=== PATIENT | female | born 1985 | race Caucasian/White ===

== ENCOUNTER → 2016-11-30 | Outpatient (REF) | payer BC, OTHER ==
[~2016-11-30] MED LIST: ATN50T PO; AZIT250T81 PO; FLUO20CA42; HYDR1TABED PO; KETO10TA55 PO; LEVO750T39 PO; LSNP10T PO; METF500T4 PO; PHEN-452; SERT100T8 PO
== END ==
LOC: LAB 10:03 → EDSTATUS 10:09 → LAB 10:10
PROVIDERS: ATTEND Nurse Practitioner Family
DX: E11.9 Type 2 diabetes mellitus without complications (principal); J03.80 Acute tonsillitis due to other specified organisms
CPT/HCPCS: 83036; 87070

== ENCOUNTER 2017-01-18 19:25 | Observation (INO) | payer BC, OTHER ==
[~2017-01-18] VITALS: Ht 188 cm; Wt 173.8 kg
[2017-01-18] MEDS ORDERED: NS IV 500 ML 500 ML IV SCH (20:00)
[2017-01-18 20:28] LABS: BASOPHILS % (AUTO) 0 % (0-2); EOSINOPHILS # (AUTO) 0.1 10^3uL; EOSINOPHILS % (AUTO) 1 % (0-4); LYMPHOCYTES # (AUTO) 1.9 X10^3; MEAN CORPUSCULAR HEMOGLOBIN 30.4 PG (26.0-34.0); MEAN CORPUSCULAR VOLUME 82 FL (80-100); MEAN PLATELET VOLUME 9.5 FL (6.0-9.5); MONOCYTES # (AUTO) 0.5 X10^3; MONOCYTES % (AUTO) 5 % (3-11); NEUTROPHILS # (AUTO) 8.9 X10^3; NEUTROPHILS % (AUTO) 78 % (51-67); PLATELET COUNT 292 10^3uL (150-450); WHITE BLOOD COUNT 11.41 10^3uL (4.0-11.0)
[2017-01-18 20:33] LABS: BILIRUBIN,URINE Negative (Negative); COLOR,URINE Yellow; GLUCOSE, URINE (UA) Negative (Negative); LEUKOCYTE ESTERASE ,URINE Negative (Negative); PH,URINE 5.5 (5.0 - 8.0); UROBILINOGEN,URINE 0.2 mg/dL (0.2-1.0)
[2017-01-18 20:37] LABS: CREATINE KINASE 45 U/L (30-135)
[2017-01-18 20:40] LABS: ALBUMIN 4.8 g/dL (3.4-5.0); ANION GAP 17.3 MEQ/L (3-15); CALCULATED IONIZED CALCIUM 4.3 mg/dL (3.8-4.6); TOTAL PROTEIN 7.9 g/dL (6.4-8.5)
[2017-01-18 20:50] LABS: CLARITY,URINE Slightly Cloudy
[2017-01-18 20:51] LABS: MEAN CORPUSCULAR HGB CONC 37.3 g/dL (31.0-37.0)
[2017-01-18 21:11] LABS: RBC,URINE 0-2 /HPF; URINE CENTRIFUGED VOLUME 12 mL
[2017-01-18] MEDS ORDERED: HYDROCHLOROTHIAZIDE 25 MG (HCTZ) TAB PO ONE (21:20)
[2017-01-18] MEDS ORDERED: LEVOFLOXACIN 250 MG TAB (LEVAQUIN) PO SCH (21:20)
[2017-01-18] MEDS ORDERED: ED- ALBUTEROL HFA (VENTOLIN HFA) 8 GM INHALER IH ONE (21:20)
[2017-01-18] MEDS ORDERED: predniSONE 20 MG (DELTASONE) TABLET PO ONE (21:20)
[2017-01-18] MEDS ORDERED: LABETALOL HCL 20 MG/4 ML VIAL IV ONE (21:55)
[2017-01-19] VITALS (11 sets, daily range): BP systolic 138–167; BP diastolic 79–103
--- NOTE | 2017-01-19 00:10 | NUR ---
Pt admitted to 343 from ER for Hypertensive Urgency. Pt was sent to ER from Urgent Care for chest pain with right neck and jaw pain and chest pressure/tightness. Pt has had a cough since Wednesday. Pt reports coughing makes her chest and jaw hurt worse. Pt's BP upon admittance to ICU was 167/103. Pt is alert and oriented, cooperative with staff. 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
[2017-01-19] MEDS ORDERED: CALCIUM CARBONATE CHEWABLE 300 MG (TUMS) TABLET PO PRN (00:50)
[2017-01-19] MEDS ORDERED: MAG HYDROX/AL HYDROX/SIMETH 200-200-20/5 ML (MAG-AL PLUS) 30 ML UDC PO PRN (00:50)
[2017-01-19] MEDS ORDERED: ONDANSETRON 4 MG (ZOFRAN) ORAL DISSOLVE TAB PO PRN (00:50)
[2017-01-19] MEDS ORDERED: ALBUTEROL 0.083% NEB SOLUTION 2.5 MG/3 ML VIAL INH PRN (00:50)
[2017-01-19] MEDS ORDERED: amLODIPine 5 MG (NORVASC) TAB PO ONE (00:50)
--- NOTE | 2017-01-19 00:50 | NUR ---
Pt assessed by Dr. Hyatt (telehospitalist). Received new orders.
[2017-01-19] MEDS ORDERED: LABETALOL HCL 20 MG/4 ML VIAL IV PRN (01:00)
--- NOTE | 2017-01-19 01:10 | NUR ---
Administered Norvasc. Pt took without difficulty. Explained med to pt. Pt's spouse staying in room tonight. Reviewed care of plan with patient and spouse Pt stated her understanding and no other questions at this time. Call light in reach.
[2017-01-19] MEDS ORDERED: lisINopril 20 MG (PRINIVIL) TABLET PO ONE (01:20)
[2017-01-19] MEDS: ACETAMINOPHEN 325 MG TAB (TYLENOL) PO PRN ×2 (02:59→09:52)
--- NOTE | 2017-01-19 06:00 | NUR ---
Pt has had very little sleep tonight. Has slept well for nearly 2.5 hours, snores and has brief periods of sleep apnea. No needs for prn Labetalol since SBPs have been 140's - 150's. No other reports of discomfort. No other needs at this time. Call light in reach.
[2017-01-19] MEDS ORDERED: ASPIRIN 325 MG TAB PO SCH (09:00)
[2017-01-19] MEDS ORDERED: meTOproloL SUCCINATE 50 MG (TOPROL XL) TAB PO SCH (09:00)
[2017-01-19] MEDS ORDERED: SERTRALINE 100 MG (ZOLOFT) TABLET PO SCH (09:00)
[2017-01-19] MEDS ORDERED: FLUoxetine 20 MG (PROzac) CAPSULE PO SCH (09:00)
--- NOTE | 2017-01-19 09:09 | NUR ---
NUTRITION ASSESSMENT Level 1 Patient: Estelle Newell Age/Sex: 31/F Date Screened: 01-19-17 Weight: 382.3#/173.8 kg Height: 74 inches Primary Diagnosis: hypertensive urgency Diet Order: medium diabetic Relevant labs: N/A Food allergies: N Nutrition Assessment Criteria Age over 80: N Body Mass Index (BMI) under 19: N Admission Screening Indicates Risk? N Moderate/High Risk Diagnosis: 3 points TPN or PPN: N NPO or clear liquid diet: N Serum Glucose <70 or >180: N/A Hgb A1c >6.7: N/A Total: 3 points Risk Screen: __ Patient at low nutritional risk based on available data; reevaluate in 5-7 days _X_ Patient at moderate nutritional risk based on available data; reevaluate in 3-5 days __ Patient at high nutritional risk; complete Nutrition Assessment within 48 hours of admission. Comments: No GI concerns, stated good appetite on admission. Noted possible DC today if doing well after lunch. Will reassess as documented above.
[2017-01-19] MEDS ORDERED: metFORMIN 500 MG (GLUCOPHAGE) TABLET PO SCH (09:15)
[2017-01-19] MEDS ORDERED: ATENOLOL 50 MG (TENORMIN) TAB PO SCH (09:15)
[2017-01-19] MEDS ORDERED: lisINopril 10 MG (PRINIVIL) TABLET PO SCH (13:35)
--- NOTE | 2017-01-19 13:50 | NUR ---
Reviewed discharge medications with patient. Provided patient handout information for new medications. No additional questions or concerns. Patient verbalized understanding of medications.
--- NOTE | 2017-01-19 14:46 | NUR ---
Patient is up independently this AM to the restroom. On assessment the patient is alert and oriented. Respirations are even and unlabored, skin is clean and dry. She presents with flat affect and quiet tone. VSS, BG at 138. and Estelle requests to sleep at this time. At approximately 0900 PHYLLIS Santiago, Dr. Gan and Dr. Bush are in to round on the patient. Discharge orders in process for this afternoon pending improvement. The patient is up and independent for hygiene after resting. She is up in bed for lunch and is able to make needs known. Prior to dismissal the patients BP is elevated with SBP between 160s and 180s and DBP between 90's and 110's on multiple assessments. 10 mg Lisinopril PO ordered and administered. At approximately 1430 BP is WNL. IV removed and discharge instructions are read. The patient is to follow up with PCP on Wednesday the . Patient remains in room 343 at this time awaiting her ride home.
--- NOTE | 2017-01-19 15:03 | NUR ---
Patient is escorted out of the building at this time. Care is relinquished.
[2017-01-19] MEDS ORDERED: LEVOFLOXACIN 750 MG TAB (LEVAQUIN) PO SCH (21:00)
== END 2017-01-19 15:03 | disposition home or self-care (01) ==
LOC: ED 19:26 → UNDOADMIN 23:29 → ICU 23:29 → INTOOBSV 23:35 → ICU 23:35
PROVIDERS: ADMIT Pediatrics; ATTEND Pediatrics
DX: I16.0 Hypertensive urgency (principal); J18.9 Pneumonia, unspecified organism; E11.9 Type 2 diabetes mellitus without complications; F41.9 Anxiety disorder, unspecified; J40 Bronchitis, not specified as acute or chronic; Z79.84 Long term (current) use of oral hypoglycemic drugs
CPT/HCPCS: 36415; 71020; 80053; 81003; 81015; 82550; 82553; 83880; 84484; 85025; 86140; 93005; 94664; 96374; 99218; 99283; J3490; J7040; 93010; 99284

== ENCOUNTER → 2017-01-18 | Outpatient (CLI) | payer BC, OTHER ==
[2017-01-18 19:29] VITALS: BP 134/83
== END ==
LOC: MHUC 18:33
PROVIDERS: ATTEND Physician Assistant Medical
DX: R06.02 Shortness of breath (principal)
CPT/HCPCS: 99213

== ENCOUNTER → 2017-02-12 | Outpatient (CLI) | payer BC, OTHER ==
--- NOTE | 2017-02-12 08:04 | Diagnostic Imaging Report ---
INDICATION: Pneumonia. PA and lateral views of the chest are obtained. Comparison is made to the examination of 01/18/2017. FINDINGS: Heart size and pulmonary vascularity are within normal limits, and the lungs are clear, bilaterally. IMPRESSION: Unremarkable chest. Dictated by: Dictated on workstation # [id number]
== END ==
LOC: RAD 07:38
PROVIDERS: ATTEND Nurse Practitioner Family
DX: R93.8 Abnormal findings on diagnostic imaging of other specified body structures (principal)
CPT/HCPCS: 71020

== ENCOUNTER → 2017-03-01 | Outpatient (REF) | payer BC, OTHER | LOC: LAB 08:04 → EDSTATUS 08:06 | PROVIDERS: ATTEND Nurse Practitioner Family | DX: E11.9 Type 2 diabetes mellitus without complications (principal) | CPT/HCPCS: 83036 ==

== ENCOUNTER 2017-04-01 07:30 | Outpatient (RCR) | payer BC, OTHER ==
--- NOTE | 2017-03-25 13:57 | PT/OT/ST INITIAL EVALUATION ---
Department of Health and Human Services Form Approved Health Care Financing Administration OMB No. [id number] PLAN OF CARE/ASSESSMENT FOR OUTPATIENT REHABILITATION (Complete for Initial Claims Only) 1. PATIENT'S NAME Estelle Newell 2. ACC # [id number] 3. HICN NA 4. PROVIDER NO. [id number] 5. TYPE: PT 6. PRIOR HOSPITALIZATION NA 7. PRIMARY DX G57.02 piriformis syndrome of the left side. 8. SECONDARY DX NA 9. ONSET DATE 1 year ago 10. REFERRAL DATE 03/17/2017 11. SOC. DATE 03/22/2017 12. TIME OF EVAL 7:29 to 8:33 12. REFERRING PHYSICIAN Edward Bush MD 13. CHARGES/UNITS PT evaluation 66209 moderate complexity. Manual therapy 34584 1 unit Therapeutic exercise 29272 1 unit 14. G CODES NA 15. PRIOR LEVEL OF FUNCTION; PERTINENT HISTORY (Prior therapy results, reason for referral.) S: Prior to therapy the patient consented to today's evaluation and treatment. The patient is a 31-year-old female referred by Dr. Edward Bush to address left-sided piriformis syndrome. The patient notes she began experiencing pain in the left hip approximately 1 year ago and the pain has progressed into her left lower extremity down around the foot since February 2017. The patient denies any specific injury that caused this issue. Primary Complaint: Pain down her left lower extremity with tenderness to palpation of the Achilles tendon, as well as cramping into her toes at times. Prior level of function: The patient was working out regularly prior to the onset of these symptoms. She was doing cardio for 1 hour a day and then would do 30 minutes of weight training, alternating between legs and arms. Current level of function: The patient reports difficulty being able to stand up from sitting. Sitting at work is difficult, as well as experiencing increased pain after working out. 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 Leisure activities: Includes working out and playing with her 4-year-old daughter. Therapy History: The patient has not had any therapy for this specific issue, but did see the chiropractor to be readjusted, but felt it was minimally beneficial. Pain level: Current pain level is 1 to 2/10. Maximum pain level is 7/10. The patient describes her pain as constant on the left side of her low back around the SI joint with radiating symptoms down along the left anterior hip at times and then along the lateral left lower extremity into her foot. Aggravating factors: The pain is aggravated by sitting or working out. Relieving factors: It is relieved by taking Tylenol. Diagnostic testing: No diagnostic imaging has been completed at this time. 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 She does report she is now beginning to experiencing similar popping in her left knee. She also has diabetes mellitus and hypertension. There was suspicion of a possible DVT due to the patient's symptoms and they have ruled that out per her report. Current medications: Include metformin, atenolol and Lisinopril, as well as Tylenol and naproxen as needed for pain. Activity level: The patient notes is semi-active. Personal health rating: Fair. Patient's Goal: The goal is to be pain free and be able to return to being active. 16. INITIAL ASSESSMENT/SAFETY PRECAUTIONS/MEDICAL COMPLICATIONS (Level of function at start of care. Be specific, use objective measures, list problems.) O: APPEARANCE, OBSERVATION AND GAIT: Observation of the patient's posture reveals an overweight, tall female. She has bilateral foot supination and left foot and ankle instability. With right lumbar side bending, she has a resolution of symptoms down her left lower extremity. With lumbar flexion the patient has pain at 50% of the range and demonstrates a left-sided deviation. PALPATION: Tenderness to palpation of the left SI joint, tightness palpable along the bilateral lumbar paraspinals into the left IT band and piriformis. SPECIAL TESTS: Positive quadrant test bilaterally with the greatest amount of pain on the left. Positive straight leg raise test for increased nerve test, negative on the right. Assessment of the patient's leg length reveals the left lower extremity is longer than the right. Positive ABDIAZIZ test on the left. Negative FADER and hip scour test bilaterally. The patient has decreased symptoms with SI joint distraction. Negative lumbar shear test for any instability in the lumbar spine, however, palpation of specific lumbar segments was difficult due to patient's size. RANGE OF MOTION/FLEXIBILITY: Hamstring length on the right was 170 degrees, left 140 degrees and painful. STRENGTH: Hip flexion right 5/5, left 4+/5 and painful. Right hip abduction was not assessed secondary to discomfort lying on left side, but left hip abduction 4/5. Knee flexion and extension 5/5 on the right, 4/5 on the left. Ankle dorsiflexion 5/5 bilaterally. TODAY'S TREATMENT: Today's treatment consisted of initiating with manual therapy techniques including right side lying lumbar rotation mobilization as well as myofascial release with the use of the stick on the left IT band into the left piriformis. The physical therapist initiated a home exercise program consisting of stretching, nerve glides and lower trunk rotation. 17. 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 The patient has significant hamstring tightness, positive nerve tension down the left lower extremity, as well as range of motion and sacroiliac joint deficits. PROGNOSIS: The patient does have a good outcome with regular therapy attendance and compliance with work space set up modifications and compliance with her home exercise program OUTCOME ASSESSMENT: The patient scores a 37/80 on the Lower Extremity Functional Index. INFORMED CONSENT: The diagnosis, prognosis, treatment plan, risks and expected outcomes were discussed with this patient and she is agreeable to today's established plan of care. JUSTIFICATION FOR THE MODERATE COMPLEXITY DIAGNOSIS CODE: Includes the patient's 1 year history of left hip issues with progress over the last month of her symptoms, the patient's medical history including diabetes and hypertension relative to her age as being only 31, as well as the patient prior treatment via chiropractor with no benefit. SHORT TERM GOALS X3 WEEKS: 1. The patient will report independence and compliance with home exercise program and work space modifications to decrease pain and strain in her low back and left lower extremity. 2. The patient will improve left hamstring length by a minimum of 15 degrees to degrees to decreased strain on the nerve root. 3. The patient will report maximum pain in the left side of her low back and down the left lower extremity as a 4/10 following a workout. 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 The patient will report a 75% decrease in left lower extremity symptoms. 2. The patient will demonstrate proper body mechanics with workout related activities to decrease strain and prevent reinjury. 3. The patient will improve her lower extremity functional index by a minimum of 10 points to demonstrate improved overall function. 4. The patient will regain 5/5 hip flexion, abduction, knee flexion and extension strength on the left. P: Plan to see this patient 2 times a week for 6 weeks in order to address left-sided low back pain and left lower extremity pain. Treatment will include modalities as needed including ultrasound, E-stim, iontophoresis, and functional dry needling. Manual therapy techniques will include myofascial release, deep tissue mobilizations, joint mobilizations to the SI joint and lumbar spine, as well as hip as needed. Manual segmental traction will be utilized as needed. Therapeutic exercise will include range of motion, progressive strengthening, emphasis on core stabilization and lower extremity strengthening, functional training including work space set up to emphasize proper ergonomics, balance and proprioceptive training, as well as neural reeducation. The patient was provided a verbal home exercise program as the patient declined having a written home exercise program at this time. Thank you for the referral of this patient. 18. FREQUENCY 2 times per week 19. DURATION 6 weeks 20. FUNCTIONAL LEVEL (End of claim period) 21. PHYSICIAN SIGNATURE ? ON FILE OR ENTER HERE: 22. DATE: I certify the need for these services furnished under this plan of care and if for partial hospitalization. 23. CERTIFICATION FROM THROUGH [facility]
== END 2017-04-12 10:48 | disposition home or self-care (01) ==
LOC: PT 07:30
PROVIDERS: ATTEND Family Medicine
DX: G57.02 Lesion of sciatic nerve, left lower limb (principal)
CPT/HCPCS: 97110; 97140; 97162; G0283; 97014